=== PATIENT | male | born 1970 | race African-American/Black ===

== ENCOUNTER 2022-10-03 23:15 | Emergency (ER) | payer MEDICAID ==
[~2022-10-03] VITALS: Ht 182.9 cm; Wt 99.0 kg
[2022-10-03] MEDS ORDERED: FAMOTIDINE 20MG/2ML VIAL IV ONE (23:30)
[2022-10-03] MEDS ORDERED: DIPHENHYDRAMINE 50MG/ML VIAL IV ONE (23:30)
[2022-10-03] MEDS ORDERED: DEXAMETHASONE 10 MG/ML VIAL IV ONE (23:30)
[2022-10-03 23:45] LABS: BASOPHILS % 0.2 % (0.0-2.0); EOSINOPHILS % 2.4 % (0.0-5.0); HEMATOCRIT. 38.3 % (42.0-52.0); HEMOGLOBIN. 13.1 g/dL (14.0-18.0); LYMPHOCYTES % 44.4 % (20.0-50.0); MEAN CORPUSCULAR HEMOGLOBIN 28.8 pg (28.0-32.0); MEAN CORPUSCULAR VOLUME 84.6 fL (80.0-94.0); MEAN PLATELET VOLUME 7.9 fl (7.4-10.4); MONOCYTES % 7.8 % (2.0-8.0); NEUTROPHILS % 45.2 % (40.0-76.0); PLATELET 255 x1000/uL (130-400); RED BLOOD CELL COUNT 4.53 mill/uL (4.7-6.1); RED CELL DISTRIBUTION WIDTH 13.4 % (11.6-14.6)
[2022-10-03 23:53] LABS: CHLORIDE 101 mEq/L (98-107)
[2022-10-04 04:00] VITALS: BP 136/87
[2022-10-04] MEDS ORDERED: P20 MT (04:50)
[2022-10-04] MEDS ORDERED: DIPH25CA83 MT (04:50)
== END 2022-10-04 05:48 | disposition home or self-care (01) ==
LOC: ER 23:15
DX: R60.9 Edema, unspecified (principal); E11.9 Type 2 diabetes mellitus without complications; I10 Essential (primary) hypertension
CPT/HCPCS: 36415; 80053; 85025; 96374; 96375; 99291; J1100; J1200; J3490